=== PATIENT | male | born 1955 | race Caucasian/White ===

== ENCOUNTER 2019-11-17 05:30 | Day surgery (SDC) | payer OTHER | END 2019-11-17 10:10 | disposition home or self-care (01) | LOC: AMB-ENDOS 05:30 → ADM 12:45 → AMB-ENDOS 12:45 | DX: K31.7 Polyp of stomach and duodenum (principal); D12.5 Benign neoplasm of sigmoid colon; K29.50 Unspecified chronic gastritis without bleeding ==